=== PATIENT | female | born 1975 | race Caucasian/White ===

== ENCOUNTER 2021-09-27 08:12 | Day surgery (SDC) | payer OTHER ==
[2021-09-26 12:01] LABS: BLOOD UREA NITROGEN,BUN 15 mg/dL (7.0-18.0); CARBON DIOXIDE,CO2 24.6 mmol/L (21.0-32.0); CHLORIDE,CL 105 mmol/L (98-107); GLUCOSE RANDOM 89 mg/dL (74-106); POTASSIUM,K 3.8 mmol/L (3.5-5.1); SODIUM,NA 142 mmol/L (136-145)
[~2021-09-27 08:12] MED LIST: Albuterol 0.083% 2.5 MG/3 ML Neb Soln NEB PRN; Clindamycin Phosphate in D5W 900 MG in Premix Bag 1 BAG IV ONE; Famotidine 20 MG/2 ML SDV IVPUSH ONE; GENTAMICIN IV ONE; Gentamicin Pediatric 10 MG/ML 2 ML SDV IV ONE; HYDROmorphone 1 MG/ML Syringe IVPUSH PRN; Ketamine 500 mg/10 ML MDV ONE; Metoclopramide 10 MG/2 ML SDV IVPUSH PRN; Morphine 2 MG/ML SYRINGE IVPUSH PRN; Naloxone 0.4 MG/ML SDV IVPUSH PRN; Ondansetron 4 MG/2 ML SDV IVPUSH PRN; Propofol 200 MG/20 ML SDV ONE; SODIUM CHLORIDE 0.9% IV ONE; Scopolamine 1.5 MG Transdermal Patch ONE; Sodium Chloride 0.9% 10 ML Syringe FLUSH PRN; Sodium Chloride 0.9% 2.5 ML Syringe FLUSH PRN; Sodium Chloride 0.9% 20 ML SDV IV PRN; fentaNYL 100 MCG/2 ML SDV IVPUSH PRN; fentaNYL 250 MCG/5 ML SDV ONE
[2021-09-27] MEDS ORDERED: Bupivacaine 0.25% 10 ML SDV ONE (08:56)
[2021-09-27] MEDS ORDERED: Fluorescein 5 ML Vial ONE (08:56)
[2021-09-27] MEDS ORDERED: Methylene Blue 50 MG/10 ML Ampule ONE (08:56)
[2021-09-27] MEDS ORDERED: Lactated Ringers 1,000 ML IV SCH ×2 (09:00→11:00)
[2021-09-27] MEDS ORDERED: Famotidine 20 MG/2 ML SDV ONE (09:15)
[2021-09-27] MEDS ORDERED: Clindamycin Phosphate in D5W 900 MG in Premix Bag 1 BAG IV ONE ×2 (09:15)
[2021-09-27] MEDS ORDERED: fentaNYL 250 MCG/5 ML SDV ONE (09:39)
[2021-09-27] MEDS ORDERED: Morphine 4 MG/ML VIAL IVPUSH PRN (10:48)
[2021-09-27] MEDS ORDERED: Ketorolac 30 MG/ML SDV IVPUSH PRN (10:48)
[2021-09-27] MEDS ORDERED: Ketorolac 30 MG/ML SDV IVPUSH ONE (10:48)
[2021-09-27] MEDS ORDERED: Ondansetron 4 MG/2 ML SDV IVPUSH PRN (11:00)
[2021-09-27] MEDS ORDERED: Acetaminophen/oxyCODONE 325-5 MG Tab PO PRN ×2 (11:00)
[2021-09-27] MEDS ORDERED: Promethazine 25 MG/ML SDV IM PRN (11:00)
[2021-09-28 07:22] LABS: CARBON DIOXIDE,CO2 23.8 mmol/L (21.0-32.0); POTASSIUM,K 3.9 mmol/L (3.5-5.1)
== END 2021-09-28 11:30 | disposition home or self-care (01) ==
LOC: MW.SDS 08:12 → MW.OB 12:46 → MW.SDS 09-28 11:30
PROVIDERS: ATTEND Obstetrics & Gynecology
DX: D25.9 Leiomyoma of uterus, unspecified (principal); N72 Inflammatory disease of cervix uteri; N80.0 Endometriosis of uterus; N83.8 Other noninflammatory disorders of ovary, fallopian tube and broad ligament; Z88.0 Allergy status to penicillin; Z79.899 Other long term (current) drug therapy
CPT/HCPCS: 36415; 58552; 80048; 84703; 85025; 85027; 86850; 86900; 86901; A9270; J1580; J1885; J2704; J3010; J3490; J7120; 00944; J7030

== ENCOUNTER 2023-04-15 19:46 | Emergency (ER) | payer OTHER ==
[2023-04-15 20:38] LABS: APPEARANCE,URINE CLEAR; BILIRUBIN,URINE NEGATIVE (NEGATIVE); GLUCOSE,URINE NEGATIVE (NEGATIVE); KETONES,URINE NEGATIVE (NEGATIVE); LEUKOCYTE ESTERASE,URINE NEGATIVE (NEGATIVE); NITRITE,URINE NEGATIVE (NEGATIVE); OCCULT BLOOD,URINE NEGATIVE (NEGATIVE); PROTEIN,URINE NEGATIVE (NEGATIVE); UROBILINOGEN,URINE 0.2 EU/dL (<2.0)
[2023-04-15 20:42] LABS: COLOR,URINE DARK YELLOW
== END 2023-04-15 21:54 | disposition home or self-care (01) ==
LOC: MW.ED 19:46
DX: S32.018A Other fracture of first lumbar vertebra, initial encounter for closed fracture (principal); S32.028A Other fracture of second lumbar vertebra, initial encounter for closed fracture; S32.038A Other fracture of third lumbar vertebra, initial encounter for closed fracture; E66.9 Obesity, unspecified; Z68.41 Body mass index [BMI] 40.0-44.9, adult; Z88.0 Allergy status to penicillin; W10.8XXA Fall (on) (from) other stairs and steps, initial encounter
CPT/HCPCS: 72128; 72128-26; 72131; 72131-26; 81003; 99283; 99284